=== PATIENT | female | born 1995 | race Caucasian/White ===

== ENCOUNTER 2022-06-17 20:40 | Emergency (ER) | payer OTHER ==
[2022-06-17 20:53] VITALS: BP 155/100; PULSE 82; RESP 16; TEMP 97.7; BMI 24.0
[2022-06-17] MEDS ORDERED: IBUPROFEN 600 MG TABLET (FP) PO ONE ×2 (21:02→21:07)
== END 2022-06-17 21:11 | disposition home or self-care (01) ==
LOC: FER 20:40
DX: M25.512 Pain in left shoulder (principal)
CPT/HCPCS: 99283-25

== ENCOUNTER 2022-08-05 18:40 | Emergency (ER) | payer BC, OTHER ==
[2022-08-05 18:56] VITALS: BP 127/86; PULSE 67; RESP 18; TEMP 97.7; BMI 25.7
== END 2022-08-05 19:09 | disposition home or self-care (01) ==
LOC: FER 18:40
DX: J06.9 Acute upper respiratory infection, unspecified (principal)
CPT/HCPCS: 0241U-QW; 99283-25

== ENCOUNTER 2022-11-25 01:01 | Emergency (ER) | payer OTHER ==
[2022-11-25 01:09] VITALS: BP 128/84; PULSE 58; RESP 16; TEMP 98; BMI 25.7
[2022-11-25] MEDS ORDERED: KETOROLAC TROMETHAMINE 60 MG/2 ML VIAL IM ONE (01:16)
[2022-11-25] MEDS ORDERED: predniSONE 20 MG TABLET (UD) PO ONE (01:16)
[2022-11-25] MEDS ORDERED: predniSONE 20 MG TABLET (UD) ONE (01:21)
[2022-11-25] MEDS ORDERED: KETOROLAC TROMETHAMINE 60 MG/2 ML VIAL ONE (01:21)
== END 2022-11-25 01:36 | disposition home or self-care (01) ==
LOC: FER 01:01
PROC: 3E0233Z Introduction of Anti-inflammatory into Muscle, Percutaneous Approach (ICD-10-PCS; principal; 2022-11-25)
DX: M54.41 Lumbago with sciatica, right side (principal)
CPT/HCPCS: 99284-25